=== PATIENT | male | born 1985 | race Caucasian/White ===

== ENCOUNTER 2021-10-06 07:52 | Outpatient (CLI) | payer BC, SELFPAY ==
--- NOTE | 2021-11-05 14:01 | WPDHOMESLEEP ---
Sleep Study - Home Unattended Date of Study: 10/06/21 Ordering Provider: Maddy Newton, OMER Interpreting Provider: Georgina Otero MD Home Sleep Study Type: Apnea Link Air Height: 1.68 m Weight: 77.111 kg Body Mass Index: 27.4 Neck Circumference (inches): 14.5 [place]: 10 Reason for Sleep Study Waking throughout the night, groggy in the morning, non restorative sleep, excessive daytime sleepiness Sleep History Joe Salas is a 36-year-old male with complaints of difficulty falling asleep and staying asleep. He wakes every 2-4 hours during the night, and he finds it difficult to return to sleep. He is groggy for too long upon awakening, his sleep is non refreshing and he has excessive daytime sleepiness. He has tow truck operator headaches. His symptoms interfere with his work. Although he does not snore or gasp for air he does frequently breathe through his mouth at night. He jerks in his sleep. He has used melatonin which did not help. He does not awaken from sleep feeling short of breath. He rarely awakens at night with heartburn, belching or coughing. Occasionally snores and occasionally this is loud enough that others complain about it. He rarely has trouble sleeping with a cold. He does not wake up gasping for breath during the night. He does not have breathing problems at night observed by others. He rarely sweats excessively at night. He does not notice his heart pounding or beating irregularly at night. He occasionally falls asleep during the day, occasionally falls asleep involuntarily, rarely while driving. He does not have loss of muscle tone with strong emotion. He rarely has daytime difficulties due to excessive sleepiness. He rarely feels paralyzed on waking or falling asleep. He occasionally has vivid dreamlike scenes upon awakening or falling asleep. He does not feel afraid to go to sleep. He occasionally has nightmares, occasionally remembers his dreams. He frequently has racing thoughts. He rarely feels sad or depressed. He rarely has anxiety. He does not have muscular tension. He occasionally notices parts of his body jerking. He does not kick at night. He does not have crawling or aching feelings in his legs. He rarely has any kind of leg pain at night. He does not have morning jaw pain. He does not grind his teeth during sleep. He rarely is bothered by pain during the day, rarely awakened by pain during the night. He rarely wakes up feeling stiff in the morning, rarely wakes up with sore or achy muscles and rarely wakes up with pain in the neck and spine. Normal bedtime is 9:00 a.m. taking 30 minutes to fall asleep typically waking 2-4 times while asleep staying awake for 15-30 minutes and sometimes longer. When he awakens, he checks the time, tries to get back to sleep. He will usually change positions to become more comfortable to help him return to sleep. He awakens between 11:00 a.m. and noon, sometimes between 2:00 p.m. and 3:00 p.m.. On weekends he goes to bed at 9:00 p.m. and awakens between 11:00 p.m. and midnight, sometimes sleeping longer and waking between 3:00 a.m. and 4:00 a.m.. 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 He does not take naps after his normal sleep episode. A short nap is not refreshing. He is usually drowsy for 2 hours after waking. He feels better in the evening compared to other times of day. He reports a 15 lb weight gain in the last year Habits: Never smoked tobacco. Occasional caffeine. No alcohol. Rare use of marijuana socially. [facility] Past Medical History Medical History (Updated 11/05/21 @ 15:17 by Georgina Otero MD) ADHD (attention deficit hyperactivity disorder) Anxiety and depression Social History Social History (Updated 11/05/21 @ 15:18 by Georgina Otero MD) Smoking status: Never smo
[2021-11-05 14:04] VITALS: BMI 27.4
== END 2021-10-07 15:43 | disposition home or self-care (01) ==
PROVIDERS: PCP Physician Assistant; Visit Provider Physician Assistant
DX: G47.9 Sleep disorder, unspecified (principal); G47.10 Hypersomnia, unspecified
CPT/HCPCS: 95806

== ENCOUNTER 2021-12-03 07:20 | Outpatient (CLI) | payer BC, SELFPAY ==
--- NOTE | 2022-01-09 14:24 | WPDSLEEPSTUD ---
Sleep Study Date of Study: 12/03/21 Ordering Provider: Maddy Newton, OMER Interpreting Physician: Georgina Otero MD Sleep Study Type: Polysomnogram Height: 1.68 m Weight: 77.111 kg Body Mass Index: 27.4 Neck Circumference (inches): 15 [place]: 9 Reason for Sleep Study * 10/06/2021 ?Home sleep test : normal apnea-hypopnea index 0.8, minimal snoring and a minimum saturation of 92%.??This does not reflect the severity of the patient's symptoms including waking during the night, nonrestorative sleep and excessive daytime sleepiness. He presents for an in -lab study. Sleep History Joe Salas is a 36-year-old male with complaints of difficulty falling asleep and staying asleep.? He wakes every 2-4 hours during the night, and he finds it difficult to return to sleep.? He is groggy for too long upon awakening, his sleep is non refreshing and he has excessive daytime sleepiness.? He has analytics lead headaches.? His symptoms interfere with his work.? Although he does not snore or gasp for air he does frequently breathe through his mouth at night.? He jerks in his sleep.? He has used melatonin which did not help.? He does not awaken from sleep feeling short of breath.? He rarely awakens at night with heartburn, belching or coughing.? Occasionally snores and occasionally this is loud enough that others complain about it.? He rarely has trouble sleeping with a cold.? He does not wake up gasping for breath during the night.? He does not have breathing problems at night observed by others.? He rarely sweats excessively at night.? He does not notice his heart pounding or beating irregularly at night.? He occasionally falls asleep during the day, occasionally falls asleep involuntarily, rarely while driving.? He does not have loss of muscle tone with strong emotion.? He rarely has daytime difficulties due to excessive sleepiness.? He rarely feels paralyzed on waking or falling asleep.? He occasionally has vivid dreamlike scenes upon awakening or falling asleep.? He does not feel afraid to go to sleep.? He occasionally has nightmares, occasionally remembers his dreams.? He frequently has racing thoughts.? He rarely feels sad or depressed.? He rarely has anxiety.? He does not have muscular tension.? He occasionally notices parts of his body jerking.? He does not kick at night.? He does not have crawling or aching feelings in his legs.? He rarely has any kind of leg pain at night.? He does not have morning jaw pain.? He does not grind his teeth during sleep.? He rarely is bothered by pain during the day, rarely awakened by pain during the night.? He rarely wakes up feeling stiff in the morning, rarely wakes up with sore or achy muscles and rarely wakes up with pain in the neck and spine. Normal bedtime is 9:00 a.m. taking 30 minutes to fall asleep typically waking 2-4 times while asleep staying awake for 15-30 minutes and sometimes longer.? When he awakens, he checks the time, tries to get back to sleep.? He will usually change positions to become more comfortable to help him return to sleep.? He awakens between 11:00 a.m. and noon, sometimes between 2:00 p.m. and 3:00 p.m..? On weekends he goes to bed at 9:00 p.m. and awakens between 11:00 p.m. and midnight, sometimes sleeping longer and waking between 3:00 a.m. and 4:00 a.m..? 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 He does not take naps after his normal sleep episode.? A short nap is not refreshing. He is usually drowsy for 2 hours after waking.? He feels better in the evening compared to other times of day.? He reports a 15 lb weight gain in the last year Habits:? Never smoked tobacco.? Occasional caffeine.? No alcohol.? Rare use of marijuana socially. [facility] Past Medical History Medical History ADHD (att
[2022-01-09 14:26] VITALS: BMI 27.4
== END 2021-12-04 05:29 | disposition home or self-care (01) ==
PROVIDERS: PCP Physician Assistant; Visit Provider Physician Assistant
DX: G47.10 Hypersomnia, unspecified (principal); G47.9 Sleep disorder, unspecified
CPT/HCPCS: 95810